=== PATIENT | male | born 1970 | race Caucasian/White ===

== ENCOUNTER → 2020-08-16 | Day surgery (SDC) | payer BC ==
[~2020-08-16] MED LIST: Dexamethasone 4 MG/ML 5 ML MDV ONE; Lactated Ringers 1,000 ML IV SCH; Lidocaine 1% 4 ML ONE; Lidocaine 1%/Sod Bicarbonate in NS 8.4% 1 ML Syringe IDERM PRN; Lidocaine 2% with EPINEPHrine 1:200,000 20 ML SDV ONE; Midazolam 1 MG/ML 2 ML SDV ONE; Propofol 200 MG/20 ML SDV ONE; Ropivacaine 0.5% 5 MG/ML 30 ML SDV ONE; Sodium Chloride 0.9% 10 ML Syringe FLUSH PRN; ceFAZolin 1 GM Vial ONE; cloNIDine 1,000 MCG/10 ML SDV ONE; fentaNYL 100 MCG/2 ML SDV ONE
--- NOTE | 2020-08-16 06:47 | PCM.PREANE ---
Preanesthetic Assessment - Procedure Proposed Procedure: Left ankle ORIF - Anesthesia/Transfusion/Family Hx Anesthesia History: Prior Anesthesia Without Reaction - Review of Systems General: No Symptoms Pulmonary: No Symptoms Cardiovascular: No Symptoms Gastrointestinal: No Symptoms Neurological: No Symptoms Other: Reports: Anxiety - Physical Assessment NPO Status Date: 08/15/20 NPO Status Time: 21:00 Vital Signs: 97.6 81 16 126/83 95% RA Height: 1.8 m Weight: 88.2 kg ASA Class: 2 Mental Status: Alert & Oriented x3 Dentition: Reports: Normal Dentition, [place](s) Thyro-Mental Finger Breadths: 3 Mouth Opening Finger Breadths: 3 ROM/Head Extension: Full Lungs: Clear to Auscultation, Normal Respiratory Effort Cardiovascular: Regular Rate, Regular Rhythm - Allergies Allergies/Adverse Reactions: Allergies Allergy/AdvReac Type Severity Reaction Status Date / Time Sulfa (Sulfonamide Allergy Swelling Verified 08/16/20 07:52 Antibiotics) - Acknowledgements Anesthesia Type Planned: Regional Block, MAC Pt an Appropriate Candidate for the Planned Anesthesia: Yes Alternatives and Risks of Anesthesia Discussed w Pt/Guardian: Yes Pt/Guardian Understands and Agrees with Anesthesia Plan: Yes Additional Comments: COVID 19 positive and asymptomatic PreAnesthesia Questionnaire HEENT History: Reports: Impaired Vision, Other (See Below) Other HEENT History: wears glasses Cardiovascular History: Reports: None Respiratory History: Reports: Sleep Apnea Gastrointestinal History: Reports: Colon Polyp, Hemorrhoids Genitourinary History: Reports: None ASSISTANT COUNSEL History: Reports: None Musculoskeletal History: Reports: Other (See Below) Other Musculoskeletal History: left ankle injury Psychiatric History: Reports: Anxiety, Other (See Below) Other Psychiatric History: dysthymia Endocrine/Metabolic History: Reports: None Hematologic History: Reports: None Immunologic History: Reports: None Oncologic (Cancer) History: Reports: None Dermatologic History: Reports: None - Infectious Disease History Infectious Disease History: Reports: Novel Coronavirus - Past Surgical History Cardiovascular Surgical History: Reports: None Respiratory Surgical History: Reports: None GI Surgical History: Reports: Colonoscopy, EGD Female Surgical History: Reports: None Male Surgical History: Reports: None Endocrine Surgical History: Reports: None Neurological Surgical History: Reports: Laminectomy, Lumbar Spine, Other (See Below) Other Neurological Surgeries/Procedures: back surgery x 4 Musculoskeletal Surgical History: Reports: Shoulder Surgery Other Musculoskeletal Surgeries/Procedures:: back surgery Oncologic Surgical History: Reports: None Dermatological Surgical History: Reports: None - SUBSTANCE USE Tobacco Use Status *Q: Former Tobacco User Recreational Drug Use History: No - HOME MEDS Home Medications: Home Meds Cholecalciferol (Vitamin D3) [Vitamin D3] 2,000 unit PO DAILY 08/15/20 [History] Escitalopram Oxalate [Lexapro] 20 mg PO DAILY 08/15/20 [History] Fluticasone Propionate [Flonase] 1 dose NASBOTH BID 08/15/20 [History] Triamcinolone Acetonide [Triamcinolone Acetonide 0.1% Oint] 1 dose TOP BID 08/15/20 [History] Aspirin [Aspirin EC] 325 mg PO BID #84 tab 08/16/20 [Rx] oxyCODONE 5 - 10 mg PO Q4H PRN #30 tab 08/16/20 [Rx] - CURRENT (IN HOUSE) MEDS Current Meds: Current Medications Lactated Ringer's (Ringers, Lactated) 1,000 mls @ 125 mls/hr IV ASDIRECTED DARRYL Stop: 08/16/20 23:00 Lidocaine/Sodium Bicarbonate (Lidocaine 1%/Sod Bicarbonate In Ns 8.4% 1 Ml Syringe) 0.25 ml IDERM ONETIME PRN PRN Reason: Prior to IV Start Stop: 08/16/20 18:00 Sodium Chloride (Sodium Chloride 0.9% 10 Ml Syringe) 10 ml FLUSH ASDIRECTED PRN PRN Reason: Keep Vein Open Stop: 08/16/20 18:00
--- NOTE | 2020-08-16 09:42 | PCM.PRNOTE ---
- Free Text/Narrative Note: Postoperative regional pain control requested by surgeon. Pre-op Dx: Left bimalleolar equivalent fracture Surgery : Left bimalleolar fracture ORIF Anesthesia Procedure: Left Popliteal block and Left saphenous block below the knee with U/S guidance Requesting physician: Dr. Paco Arora Risks and benefits discussed with the patient preoperatively including infection, bleeding, incomplete or failed block, possible nerve damage, local anesthetic toxicity. Chart reviewed, VS stable. Permit signed. Patient in PACU holding area, stable , alert and awake. Time out performed at 06:57. Oxygen 3L via NC. Left lateral thigh area above the knee was prepped with Chloraprep x 1 and allowed to dry. Midazolam IV 4 mg given incrementally. Under aseptic technique, the Left common peroneal and Left tibial nerves were identified under ultrasound prior to needle insertion. Local infiltration with 1% Lidocaine. 4" Stimuplex needle #22 G was inserted under US guidance. Neuromuscular response was elicited with noted foot twitch at 0.6 mA. Under direct visualization of needle tip the injection of 2% PF Lidocaine (7 mls) with 1:200k epinephrine and 0.5% Ropivacaine with 1:200k epinephrine (25 mls) with added 100 mcg of Clonidine and 8 mg of Dexamethasone , total of 35 mls in divided doses, maintaining negative aspiration was completed without problems. After that, the medial surface of the left leg BELOW the knee was prepped with Chloraprep and allowed to dry. Under ultrasound guidance left great saphenous vein was identified and using a 2" Stimuplex needle 10 mls of 0.5% Ropivacaine with 1:200k epinephrine were injected around it in a crescent shape fashion. No local anesthetic toxicity was noted. Patient is awake, stable and tolerated the procedure well. Please see attached U/S images Time: 06:57 - 07:13
--- NOTE | 2020-08-16 12:30 | CR ---
Left ankle: 4 views left ankle were obtained. Comparison: No prior ankle study is available. Findings: Plate and screw are seen along the distal fibula with 2 screws crossing the plate on the fibula into the tibia. Ankle mortise is symmetric. Nothing acute is seen. Impression: 1. Postoperative study as noted above. Diagnostic code #2
--- NOTE | 2020-08-16 12:32 | PCM48HPAN ---
Post Anesthesia Note - EVALUATION WITHIN 48HRS OF ANESTHETIC Vital Signs in Normal Range: Yes Patient Participated in Evaluation: Yes Respiratory Function Stable: Yes Airway Patent: Yes Cardiovascular Function Stable: Yes Hydration Status Stable: Yes Pain Control Satisfactory: Yes Nausea and Vomiting Control Satisfactory: Yes Mental Status Recovered: Yes Vital Signs: Last Vital Signs Temp 97.5 F 08/16/20 12:00 Pulse 68 08/16/20 12:00 Resp 16 08/16/20 12:00 BP 101/64 08/16/20 12:00 Pulse Ox 92 L 08/16/20 12:00 - COMMENTS/OBSERVATIONS Free Text/Narrative:: preparing for home discharge
[2020-08-16 12:33] VITALS: BP 102/67; PULSE 67
--- NOTE | 2020-08-16 16:53 | PCM.OPNOTE ---
- General Post-Op/Procedure Note Date of Surgery/Procedure: 08/16/20 Operative Procedure(s): open reduction internal fixation of left ankle syndesmosis Pre Op Diagnosis: left ankle bimalleolar equivalent fracture Post-Op Diagnosis: Same Anesthesia Technique: MAC, Regional Block Primary Surgeon: Paco Elizondo Anesthesia Provider: Bakari Wayne Flower Arranger: Daniela Marcos EBL in mLs: 5 Complications: None Condition: Good Free Text/Narrative:: Intake & Output 08/16/20 08/16/20 08/16/20 06:59 14:59 22:59 Intake Total 560 Balance 560
--- NOTE | 2020-08-16 17:54 | OR ---
DATE OF OPERATION: 08/16/2020 SURGEON: Paco Elizondo MD OPERATION PERFORMED: Open reduction and internal fixation of left ankle syndesmosis. PREOPERATIVE DIAGNOSIS: Left ankle bimalleolar equivalent fracture. POSTOPERATIVE DIAGNOSIS: Left ankle bimalleolar equivalent fracture. ANESTHESIA: MAC with regional block. ANESTHESIA PROVIDER: Edilia Ann. DATA OPERATIONS MANAGER: Daniela Marcos PA-C ESTIMATED BLOOD LOSS: 5 mL. COMPLICATIONS: None. CONDITION: Stable. DESCRIPTION OF PROCEDURE: The patient was identified in the preoperative holding area. Proper site was marked and identified by the surgeon. The patient was taken back to the operating theater where after adequate anesthesia, the patient's left lower extremity had a nonsterile tourniquet applied and was then sterilely prepped and draped in the usual sterile fashion. OR time-out was performed. The patient received 2 grams of IV Ancef. Left lower extremity was exsanguinated and tourniquet was insufflated to 200 mmHg. Standard lateral incision over the fibula, just near the fixation for the syndesmosis, was undertaken. This was taken down to the fibula, making sure they were clear on soft tissue. Reduction of the syndesmosis was done at this time. A small 2-hole 3.0 mm lateral fibular plate was placed, it was K-wired in proper position. C-arm fluoroscopy showed it to be in proper position on AP and mortise views, as well as reduction of mortise. Two fully-threaded 3.5 cortical screws were then placed and tightened. C-arm fluoroscopy was utilized for AP and mortise views as well as a stress view showing no widening of the medial clear space. At this time, adequate saline was irrigated through the wound. 2-0 Vicryl was used subcutaneously, nylon was used for closure of the skin, patient was placed in a sterile soft dressing in a posterior slab splint and sent to the PACU in stable condition. MMODAL /[id number]
== END | disposition home or self-care (01) ==
LOC: JD.SDS 06:41
PROVIDERS: ATTEND Orthopaedic Surgery
DX: S82.842A Displaced bimalleolar fracture of left lower leg, initial encounter for closed fracture (principal); Z88.2 Allergy status to sulfonamides; Z91.09 Other allergy status, other than to drugs and biological substances; Z87.891 Personal history of nicotine dependence; Z86.16 Personal history of COVID-19; Z86.010 Personal history of colon polyps; Z79.82 Long term (current) use of aspirin; Z79.899 Other long term (current) drug therapy; Z98.890 Other specified postprocedural states; X58.XXXA Exposure to other specified factors, initial encounter
CPT/HCPCS: 27829; 76000; C1713; J0690; J0735; J1100; J2250; J2704; J2795; J3010; J7120; 01480; 64450; 76942